=== PATIENT | female | born 1995 ===

== ENCOUNTER → 2021-08-03 | Emergency (ER) | payer OTHER | END | disposition home or self-care (01) | LOC: ER 11:39 | DX: N92.1 Excessive and frequent menstruation with irregular cycle (principal); N83.201 Unspecified ovarian cyst, right side ==

== ENCOUNTER → 2021-11-02 | Emergency (ER) | payer OTHER ==
[~2021-11-02] VITALS: Ht 149.9 cm; Wt 65.8 kg
[~2021-11-02] MED LIST: TIROSINT25 MCG PO
== END | disposition home or self-care (01) ==
LOC: ER 08:38
DX: B00.2 Herpesviral gingivostomatitis and pharyngotonsillitis (principal); R50.9 Fever, unspecified; R21 Rash and other nonspecific skin eruption; E03.9 Hypothyroidism, unspecified; Z88.6 Allergy status to analgesic agent